=== PATIENT | male | born 1995 | race American Indian/Alaskan Native ===

== ENCOUNTER 2018-08-18 16:24 | Emergency (ER) | payer MEDICAID ==
[2018-08-18 16:25] VITALS: BMI 25.8
--- NOTE | 2018-08-18 16:51 | C.PDOC ---
History Of Present Illness 22yo male, brought to ER by the PD for evaluation as patient was complaining of anxiety. Patient states he has a history of anxiety since he was 5 years old; he does follow up with a psychiatrist but currently states "I just don't know what to do." Patient reports his parents usually "take care of everything" and that he is "unsure where to begin." He reports his anxiety was controlled on Ativan but he has been non-compliant for weeks. Currently, he has no suicidal or homicidal ideation, no auditory/visual hallucinations. Patient has no medical complaints. Time Seen by Provider: 08/18/18 16:31 Chief Complaint (Nursing): Psychiatric Evaluation History Per: Patient History/Exam Limitations: no limitations Current Symptoms Are (Timing): Still Present Associated Symptoms: denies: Suicidal Thoughts, Suicidal Plan Past Medical History Reviewed: Historical Data, Nursing Documentation, Vital Signs Vital Signs: Last Vital Signs Temp 98.1 F 08/18/18 16:29 Pulse 60 08/18/18 16:29 Resp 16 08/18/18 16:29 BP 122/71 08/18/18 16:29 Pulse Ox 100 08/18/18 16:29 - Medical History PMH: Anxiety, Asthma, Depression Surgical History: No Surg Hx Family History: States: No Known Family Hx - Social History Hx Alcohol Use: Yes Hx Substance Use: Yes - Immunization History Hx Tetanus Toxoid Vaccination: Yes Hx Influenza Vaccination: Yes Hx Pneumococcal Vaccination: Yes Review Of Systems Except As Marked, All Systems Reviewed And Found Negative. (as per HPI) Psych: Positive for: Anxiety. Negative for: Suicidal ideation Physical Exam - Physical Exam Appears: Non-toxic, No Acute Distress, Other (calm and cooperative) Skin: Normal Color Head: Atraumatic, Normacephalic Eye(s): bilateral: Normal Inspection Chest: Symmetrical Cardiovascular: Rhythm Regular Respiratory: Normal Breath Sounds Extremity: Normal ROM Neurological/Psych: Oriented x3, Normal Speech, Normal Cognition ED Course And Treatment O2 Sat by Pulse Oximetry: 100 (RA) Pulse Ox Interpretation: Normal Reevaluation Time: 16:50 Reassessment Condition: Improved (MEDICALLY CLEAR FOR DC W PD) Medical Decision Making Medical Decision Making: Impression: 22yo male complaining of anxiety Plan: -- Patient medically cleared for incarceration. Patient was informed by his psychiatrist that he needs a primary doctor but he currently does not have one; patient provided with referral to [facility]. Disposition Counseled Patient/Family Regarding: Diagnosis, Need For Followup - Disposition Referrals: [facility] [Outside] [facility] [Outside] Disposition: HOME/ ROUTINE Disposition Time: 16:50 Condition: IMPROVED Additional Instructions: YOU MUST FOLLOW UP WITH YOUR PSYCHIATRIST AND FOLLOW UP IN CLINIC FOR FURTHER MANAGEMENT. MEDICALLY CLEARED FOR DISCHARGE WITH [facility] PD Instructions: Anxiety, Adult (DC) Forms: [employer] (Taiwanese) - Clinical Impression Clinical Impression: Anxiety - Scribe Statement The provider has reviewed the documentation as recorded by the Fam Tabares Provider Attestation: All medical record entries made by the Fam were at my direction and personally dictated by me. I have reviewed the chart and agree that the record accurately reflects my personal performance of the history, physical exam, medical decision making, and the department course for this patient. I have also personally directed, reviewed, and agree with the discharge instructions and disposition.
[2018-08-19 00:45] VITALS: BP 122/71; PULSE 60; RESP 16; TEMP 98.1; O2SAT 100
== END 2018-08-18 17:04 | disposition home or self-care (01) ==
LOC: C.ER 16:24
DX: F41.9 Anxiety disorder, unspecified (principal)